=== PATIENT | female | born 1940 | race Caucasian/White ===

== ENCOUNTER → 2016-05-09 | Outpatient (CLI) | payer OTHER ==
[~2016-05-09] MED LIST: ACIPHEX 20 MG T20 MG PO; ACTONEL 5 MG5 M1 PO; AMLODIPINE BESY10 MG PO; AMLODIPINE BESYL5 MG PO; APAP500 PO; APAP650 PO; ASPIRIN325 PO; BAYER CHEWABLE81 MG PO; CALCIUM 600 +1 EAC1 PO; CENTRUM SILVER1 EAC4 PO; CITRACAL PLUS1 EACH PO; CVS LUTEIN 401 EACH PO; CYCLOBENZAPRINE5 MG PO; DOXYCYCLINE 10100 M1 PO; DRY EYE OMEGA1 EACH PO; EMERGEN-C PO; EPIPEN0.3 MG/0.3 IM; ESTER-C 1,0001 EACH PO; EYE OMEGA ADVA1 EACH PO; FISH OIL WITH1 EACH PO; FOLIC ACID1 MG PO; GABAPENTIN100 MG PO; GLUCOSAMINE CH1 EAC7 PO; GLUCOSAMINE HC500 MG PO; GLUCOSAMINE SU500 MG PO; GLUCOSAMINE-MS1 EAC3 PO; HERBAL ENERGY1 EACH PO; HYDROCODONE-AP1 EAC6 PO; IRON325 PO; KRILL OIL 3001 EACH PO; KRILL OIL500 MG PO; LEVOTHROID150 MC1 PO; LEVOTHYROXIN0.088 MG PO; LEVOTHYROXIN0.112 M1 PO; LEVOTHYROXIN0.125 M1; LEVOTHYROXIN0.125 M1 PO; LEVOTHYROXIN0.125 M2 PO; LEVOXYL150 MCG PO; LIMBREL 500 MG500 MG PO; LISINOPRIL20 MG PO; LUTEIN10 MG PO; MECLIZINE 25 MG25 M1 PO; METHOTREXATE 22.5 MG GT; METHOTREXATE 22.5 MG PO; MIRALAX17 GM PO; NORCO 10-325 T1 EACH PO; NORCO 5-325 TA1 EACH PO; OMEGA-31000 MG PO; OMEPRAZOLE 20 M20 M1 PO; OMEPRAZOLE20 M2 PO; ONE-A-DAY WOMENS PO; OPTIFLEX-C400 MG; OSTEO BI-FLEX1 EAC1 PO; PREDNISONE 5 MG5 M1 PO; PREDNISONE 5 MG5 MG PO; RESTASIS1 EACH OPHTHALMIC; ROXICET 5-325 OR5 ML PO; SIMVASTATIN40 MG PO; SUSTAIN OPHTHALMIC; SYSTANE 0.3-0.1 EACH OPHTHALMIC; THERA TEARS15 ML OPHTHALMIC; THERA-M CAPLET1 EACH PO; TRIPLE FLEX CA1 EACH PO; TYLENOL EX-STR500 M2 PO; ULTRAM 50MG TAB50 MG PO; VESICARE 5 MG TA5 M1 PO; VIACTIV SOFT C1 EACH PO; VITAMIN D32000 UNI1 PO; WOMEN'S 50+ DA1 EACH PO; XARELTO10 MG PO; ZOFRAN ODT4 MG DISSOLVE; ZOFRAN ODT4 MG PO; [UNRECOGNIZED DRUG - OTHER] OPHTHALMIC
== END ==
LOC: RAD 10:44
DX: R05 Cough (principal)

== ENCOUNTER → 2017-05-06 | Outpatient (CLI) | payer OTHER | LOC: RAD 08:37 → ULTRA 16:33 | DX: I25.10 Atherosclerotic heart disease of native coronary artery without angina pectoris (principal); I63.9 Cerebral infarction, unspecified; R05 Cough ==

== ENCOUNTER 2017-05-14 18:20 | Emergency (ER) | payer OTHER ==
[~2017-05-14] VITALS: Ht 160 cm; Wt 68.0 kg
== END 2017-05-14 20:34 | disposition home or self-care (01) ==
LOC: ER 18:20
DX: S00.03XA Contusion of scalp, initial encounter (principal); I10 Essential (primary) hypertension; Z96.643 Presence of artificial hip joint, bilateral; Z88.6 Allergy status to analgesic agent; Z88.1 Allergy status to other antibiotic agents; Z88.2 Allergy status to sulfonamides; Z88.0 Allergy status to penicillin; Z88.8 Allergy status to other drugs, medicaments and biological substances; W18.39XA Other fall on same level, initial encounter; Y93.89 Activity, other specified; Y92.89 Other specified places as the place of occurrence of the external cause; Y99.8 Other external cause status

== ENCOUNTER → 2018-02-23 | Outpatient (CLI) | payer OTHER | LOC: RAD 14:41 | DX: R05 Cough (principal); R09.89 Other specified symptoms and signs involving the circulatory and respiratory systems; I70.0 Atherosclerosis of aorta ==

== ENCOUNTER → 2018-03-10 | Outpatient (CLI) | payer OTHER | LOC: CAT 10:02 | DX: J32.9 Chronic sinusitis, unspecified (principal); K11.20 Sialoadenitis, unspecified ==

== ENCOUNTER → 2020-01-04 | Outpatient (CLI) | payer OTHER | LOC: SJCVCIMAG 11:44 | PROVIDERS: ATTEND Internal Medicine | DX: I25.10 Atherosclerotic heart disease of native coronary artery without angina pectoris (principal); E78.5 Hyperlipidemia, unspecified; M06.9 Rheumatoid arthritis, unspecified; E11.9 Type 2 diabetes mellitus without complications; M35.00 Sjogren syndrome, unspecified; M32.9 Systemic lupus erythematosus, unspecified; Z79.899 Other long term (current) drug therapy ==

== ENCOUNTER → 2020-07-09 | Outpatient (CLI) | payer OTHER | LOC: SJCVC 12:52 | PROVIDERS: ATTEND Internal Medicine | DX: I25.10 Atherosclerotic heart disease of native coronary artery without angina pectoris (principal); I10 Essential (primary) hypertension; E78.5 Hyperlipidemia, unspecified; E06.9 Thyroiditis, unspecified; M35.00 Sjogren syndrome, unspecified; E11.9 Type 2 diabetes mellitus without complications; M32.9 Systemic lupus erythematosus, unspecified; Z79.899 Other long term (current) drug therapy; Z88.2 Allergy status to sulfonamides; Z88.8 Allergy status to other drugs, medicaments and biological substances ==